=== PATIENT | male | born 1995 | race Caucasian/White ===

== ENCOUNTER 2023-07-14 00:24 | Emergency (ER) | payer MEDICAID ==
[~2023-07-14] VITALS: Ht 188 cm; Wt 93.0 kg
[2023-07-14 00:28] VITALS: BP 151/93; PULSE 88; RESP 16; TEMP 97.4; O2SAT 100
[2023-07-14] MEDS ORDERED: BACITRACIN OINT 500 UNITS/GM PKT TP ONE (01:31)
[2023-07-14] MEDS ORDERED: NAPR-54 PO (02:48)
[2023-07-14 03:06] VITALS: BP 151/93; PULSE 88; RESP 16; TEMP 97.4; O2SAT 100
== END 2023-07-14 03:06 | disposition home or self-care (01) ==
LOC: MED 00:24
DX: S02.2XXA Fracture of nasal bones, initial encounter for closed fracture (principal); W11.XXXA Fall on and from ladder, initial encounter; Y93.89 Activity, other specified; Y92.89 Other specified places as the place of occurrence of the external cause; Y99.8 Other external cause status
CPT/HCPCS: 70486; 90471; 90715; 99285